=== PATIENT | female | born 1990 | race Caucasian/White ===

== ENCOUNTER → 2017-08-27 | Outpatient (CLI) | payer OTHER ==
[~2017-08-27] MED LIST: ACET500; CALCA500CH; CEPH500 PO; Cleocin HCl150 MG PO; Cleocin HCl300 MG PO; HYDACE5 PO; HYDACE5325 PO; LEVFLO500 PO; METO10 PO; METR500 PO; MULVITMINE; NAPR500 PO; NAPR550 PO; PROM25 PO; SULTRIDS PO; Ultram50 MG PO; Wellbutrin Sr200 MG PO
== END | disposition home or self-care (01) ==
LOC: LAB SHORT 15:59 → LAB 15:59
DX: Z09 Encounter for follow-up examination after completed treatment for conditions other than malignant neoplasm (principal); Z86.14 Personal history of Methicillin resistant Staphylococcus aureus infection
CPT/HCPCS: 87081

== ENCOUNTER → 2017-10-01 | Outpatient (CLI) | payer OTHER | LOC: LAB 12:00 → LAB SHORT 12:00 | DX: A49.02 Methicillin resistant Staphylococcus aureus infection, unspecified site (principal) | CPT/HCPCS: 87081 ==